=== PATIENT | female | born 1980 | race African-American/Black ===

== ENCOUNTER 2021-10-22 10:58 | Outpatient (CLI) | payer OTHER ==
[2021-10-22 11:20] LABS: PLATELET COUNT 247 K/uL (152-353)
[2021-10-22 11:40] LABS: POTASSIUM 3.8 mmol/L (3.6-5.2)
== END 2021-10-22 18:58 | disposition home or self-care (01) ==
LOC: LABW 10:58
PROVIDERS: ATTEND Family Medicine
DX: I10 Essential (primary) hypertension (principal)
CPT/HCPCS: 36415; 80053; 81000; 82550; 84484; 85027

== ENCOUNTER 2021-10-30 12:28 | Outpatient (CLI) | payer OTHER | END 2021-10-30 19:23 | disposition home or self-care (01) | LOC: RESP 12:28 | PROVIDERS: ATTEND Nurse Practitioner Family | DX: I10 Essential (primary) hypertension (principal); G44.209 Tension-type headache, unspecified, not intractable | CPT/HCPCS: 93005 ==

== ENCOUNTER 2022-06-09 12:08 | Outpatient (CLI) | payer OTHER ==
[2022-06-09 12:33] LABS: PLATELET COUNT 284 K/uL (152-353)
[2022-06-09 13:16] LABS: POTASSIUM 3.7 mmol/L (3.6-5.2)
== END 2022-06-09 19:06 | disposition home or self-care (01) ==
LOC: LABW 12:08
PROVIDERS: ATTEND Nurse Practitioner Primary Care
DX: K81.9 Cholecystitis, unspecified (principal)
CPT/HCPCS: 36415; 80053; 82150; 83690; 85027

== ENCOUNTER 2022-06-11 08:13 | Outpatient (CLI) | payer OTHER | END 2022-06-11 19:05 | disposition home or self-care (01) | LOC: US 08:13 | PROVIDERS: ATTEND Nurse Practitioner Primary Care | DX: K81.9 Cholecystitis, unspecified (principal) ==

== ENCOUNTER 2023-02-24 11:14 | Outpatient (CLI) | payer OTHER ==
[2023-02-24 11:38] LABS: PLATELET COUNT 282 K/uL (152-353)
[2023-02-24 11:52] LABS: POTASSIUM 3.7 mmol/L (3.6-5.2)
== END 2023-02-24 19:04 | disposition home or self-care (01) ==
LOC: RESP 11:14
PROVIDERS: ATTEND Nurse Practitioner Family
DX: R07.89 Other chest pain (principal)
CPT/HCPCS: 36415; 80048; 82550; 82553; 84484; 85027